=== PATIENT | female | born 2000 | race Caucasian/White ===

== ENCOUNTER 2023-02-07 16:57 | Outpatient (CLI) | payer BC, SELFPAY ==
[2023-02-07 18:20] LABS: Beta HCG Quantitative < 2.39 mIU/ML
== END 2023-02-07 16:58 | disposition home or self-care (01) ==
LOC: ANHLAB 17:06
PROVIDERS: PCP Pediatrics; Visit Provider Obstetrics & Gynecology
DX: N91.2 Amenorrhea, unspecified (principal)
CPT/HCPCS: 36415; 84702